=== PATIENT | male | born 1950 | race Caucasian/White ===

== ENCOUNTER → 2018-01-05 | Outpatient (CLI) | payer MEDICARE, OTHER | LOC: COL.RAD 12:32 | DX: N40.1 Benign prostatic hyperplasia with lower urinary tract symptoms (principal); N32.89 Other specified disorders of bladder; N39.43 Post-void dribbling; N18.3 Chronic kidney disease, stage 3 (moderate); N13.30 Unspecified hydronephrosis; N28.82 Megaloureter; K80.20 Calculus of gallbladder without cholecystitis without obstruction ==

== ENCOUNTER 2021-06-22 12:30 | Day surgery (SDC) | payer MEDICARE, OTHER ==
[2021-06-22] VITALS (8 sets, daily range): BP systolic 124–140; BP diastolic 69–84; PULSE 57–95; TEMP 97.8–98
[~2021-06-22] VITALS: Ht 182.9 cm; Wt 96.0 kg
[2021-06-22] MEDS ORDERED: NORCO 325 MG-101 TAB PO (14:05)
[2021-06-22] MEDS ORDERED: LYRICA 50MG CAP50 MG PO (14:05)
[2021-06-22] MEDS ORDERED: BENADRYL25 M2 PO (14:06)
[2021-06-22] MEDS ORDERED: CIALIS5 MG PO (14:07)
[2021-06-22] MEDS ORDERED: PROSCAR 5MG5 MG PO (14:07)
[2021-06-22] MEDS ORDERED: FLOMAX 0.40.4 MG/CAP PO (14:07)
[2021-06-22] MEDS ORDERED: PRINIVIL40 MG PO (14:08)
[2021-06-22] MEDS ORDERED: NORVASC 5MG5 MG/TAB PO (14:08)
[2021-06-22] MEDS ORDERED: HCTZ 25MG TAB25 MG PO (14:09)
[2021-06-22] MEDS ORDERED: ZOCOR 20MG20 MG PO (14:09)
[2021-06-22] MEDS ORDERED: TRULICITY1.5 MG/0.5 SQ (14:09)
[2021-06-22] MEDS ORDERED: MULTIPLE VITAMI1 TA5 PO (14:10)
[2021-06-22] MEDS ORDERED: OMEGA-3 1000 MG1 CAP PO (14:11)
--- NOTE | 2021-06-22 19:01 | NUR ---
Patient up from OR at 1800. Denies pain at this time. Ernandez to DD with clear pink urine present, CBI infusing at a moderate rate. Spouse at bedside. Fluids infusing per orders. Patient denies needs at this time. Will report off to motor winder.
--- NOTE | 2021-06-22 21:45 | NUR ---
Patient alert and oriented. Patient has CBI in place. [place] color urine with some blood clots noted. Increased rate of CBI. Patient reports some moderate pain to his neck area. Patient states it is chronic pain for him. Scheduled pain med given per MAR. IVF infusing well to right forearm IV site. Call light in reach. Will continue to monitor.
[2021-06-23 03:29] VITALS: BP 130/72; PULSE 78; TEMP 98.5
--- NOTE | 2021-06-23 06:07 | NUR ---
Patient doing well. CBI remains in place throughout the night. [place] tinged output noted. PRN pain meds given throughout the night for pain. Call light in reach.
[2021-06-23 07:46] VITALS: BP 142/78; PULSE 70; TEMP 98.3
[2021-06-23] MEDS ORDERED: PYRIDIUM 100MG100 MG PO (08:21)
--- NOTE | 2021-06-23 09:07 | NUR ---
Patient was instructed about six bottle routine. 450 ml was removed from arthur bag. Hematuria was noticed. Patient was primed with 300 ml of CBI solution. 35 ml was extracted from balloon. Catheter was removed with tip intact and pericare was perfromed. Patient tolerated procedure well. Patient aware of need to increase oral fluids.
--- NOTE | 2021-06-23 10:45 | NUR ---
SILVIANO met with the patient and his , Marcela (ph#[phone]), to discuss discharge plan. The patient lives in [place] with his . He reports independence with ADLs and has a cane. The patient's PCP is Dr. Nicol Leach at the [facility] and he receives his medications from [facility]. He reports no difficulties obtaining his meds. The patient does not have a DPOA-HC, but he was interested in obtaining a form. SILVIANO provided the form. The patient plans to return home with his upon discharge. Marcela reports that if the patient does discharge with a catheter, they would be interested in getting some catheter supplies to take home with them. SW to notify the patient's RN. *Discharge plan: home with *
--- NOTE | 2021-06-23 11:08 | NUR ---
PT PRIMED AND PULLED PER PHYSICIAN ORDERS. PT OUT AMBULATING IN HALLS WITH SPOUSE. RETURNED TO ROOM. NO VOIDS AT THIS TIME. VSS, ASSESSMENTS COMPLETE WNL.
--- NOTE | 2021-06-23 11:41 | NUR ---
First visit from the concession supervisor. No needs right now.
--- NOTE | 2021-06-23 18:04 | NUR ---
DISCHARGE INSTRUCTIONS REVIEWED WITH PT AND . QUESTIONS SOLICITED AND ANSWERED. PT OUT IN WHEEL CHAIR.
== END 2021-06-23 18:07 | disposition home or self-care (01) ==
LOC: SDCO 12:30 → SURG 17:26 → SDCO 06-23 18:07
DX: N40.1 Benign prostatic hyperplasia with lower urinary tract symptoms (principal); N13.39 Other hydronephrosis; E11.9 Type 2 diabetes mellitus without complications; R39.12 Poor urinary stream; R35.1 Nocturia; I10 Essential (primary) hypertension; E78.5 Hyperlipidemia, unspecified; R39.14 Feeling of incomplete bladder emptying; Z90.89 Acquired absence of other organs; Z79.899 Other long term (current) drug therapy; Z87.891 Personal history of nicotine dependence; Z79.891 Long term (current) use of opiate analgesic; M19.90 Unspecified osteoarthritis, unspecified site
CPT/HCPCS: OP; J2250; J2270; J2704; J3010; J3480; J7030